=== PATIENT | male | born 1995 | race Two or more races ===

== ENCOUNTER 2017-07-27 06:11 | Inpatient (IN) | payer SELFPAY ==
[~2017-07-27] VITALS: Ht 175.3 cm; Wt 77.1 kg
[2017-07-27] MEDS ORDERED: ONDANSETRON HCL 4MG/2ML VIAL IV STA (06:50)
[2017-07-27] MEDS ORDERED: MORPHINE SULFATE 4 MG/ML CPJ (NOT FOR IM USE) IV STA (06:50)
[2017-07-27] MEDS ORDERED: SODIUM CHLORIDE 0.9% 1,000 ML IV ONE ×2 (06:50→12:18)
[2017-07-27 07:21] LABS: HEMATOCRIT. 44.2 % (42.0-52.0); MEAN CORPUSCULAR HEMOGLOBIN 27.7 pg (28.0-32.0); MEAN CORPUSCULAR VOLUME 81.8 fL (80.0-94.0); MEAN PLATELET VOLUME 8.6 fl (7.4-10.4); PLATELET 312 x1000/uL (130-400); RED CELL DISTRIBUTION WIDTH 12.6 % (11.6-14.6)
[2017-07-27 07:28] LABS: PROTHROMBIN TIME 10.6 sec (9.4-11.6)
[2017-07-27 07:36] LABS: CARBON DIOXIDE 27 mEq/L (21-32); CHLORIDE 101 mEq/L (98-107); PLATELET ESTIMATE NORMAL
[2017-07-27 08:59] LABS: CLARITY URINE CLEAR (CLEAR); COLOR URINE YELLOW (YELLOW); KETONES URINE NEGATIVE (NEGATIVE); LEUKOCYTE ESTERASE URINE NEGATIVE (NEGATIVE); NITRITE URINE NEGATIVE (NEGATIVE); OCCULT BLOOD URINE 2+ (NEGATIVE); PROTEIN URINE NEGATIVE (NEGATIVE); SPECIFIC GRAVITY URINE 1.019 (1.005-1.030); UROBILINOGEN URINE 0.2 E.U./dL (0.2-1.0)
[2017-07-27] MEDS ORDERED: MORPHINE SULFATE 4 MG/ML CPJ (NOT FOR IM USE) IV ONE (11:45)
[2017-07-27] MEDS ORDERED: IOHEXOL-300 100 ML BOTTLE ONE (12:18)
[2017-07-27] MEDS ORDERED: ACETAMINOPHEN 325MG TABLET PO NR (12:18)
[2017-07-27] MEDS ORDERED: LEVOFLOXACIN 750MG PREMIX 150 ML IV NR (12:30)
[2017-07-27] MEDS ORDERED: KETOROLAC 30MG/ML VIAL IV ONE (12:45)
[2017-07-27] MEDS ORDERED: SODIUM CHLORIDE 0.9% 1,000 ML IV NR (13:08)
[2017-07-27] MEDS ORDERED: SODIUM CHLORIDE 0.9% 1,000 ML IV SCH (14:00)
[2017-07-27 18:29] VITALS: BP 120/80
[2017-07-27] MEDS ORDERED: DIPHENHYDRAMINE 50MG/ML VIAL IV PRN (19:45)
[2017-07-27] MEDS ORDERED: PIPERACILLIN/TAZ 3.375G PREMIX 50 ML IV SCH (19:45)
[2017-07-27] MEDS ORDERED: ACETAMINOPHEN 325MG TABLET PO PRN (19:45)
[2017-07-27] MEDS ORDERED: ONDANSETRON HCL 4MG/2ML VIAL IV PRN (19:45)
[2017-07-27] MEDS ORDERED: MORPHINE SULFATE 2 MG/ML CPJ (NOT FOR IM USE) IV PRN (19:45)
[2017-07-27] MEDS ORDERED: MAGNESIUM/ALUMINUM HYDROXIDE/SIMETHICONE 30ML UDC PO PRN (19:45)
[2017-07-27 20:00] VITALS: BP 123/57
[2017-07-27] MEDS: PIPERACILLIN/TAZ 3.375G PREMIX 50 ML IV SCH (21:52)
[2017-07-27] MEDS: SODIUM CHLORIDE 0.9% 1,000 ML IV SCH (21:53)
[2017-07-28] VITALS: BP 123/76
[2017-07-28] MEDS: PIPERACILLIN/TAZ 3.375G PREMIX 50 ML IV SCH ×3 (00:10→12:06)
[2017-07-28 04:00] VITALS: BP 141/81
[2017-07-28] MEDS: SODIUM CHLORIDE 0.9% 1,000 ML IV SCH (05:02)
[2017-07-28 06:36] LABS: BASOPHILS % 0.4 % (0.0-2.0); EOSINOPHILS % 0.7 % (0.0-5.0); HEMOGLOBIN. 14.5 g/dL (14.0-18.0); LYMPHOCYTES % 17.2 % (20.0-50.0); MEAN CORPUSCULAR HEMOGLOBIN 28.4 pg (28.0-32.0); MEAN CORPUSCULAR VOLUME 82.6 fL (80.0-94.0); MEAN PLATELET VOLUME 8.7 fl (7.4-10.4); MONOCYTES % 12.6 % (2.0-8.0); NEUTROPHILS % 69.1 % (40.0-76.0); PLATELET 301 x1000/uL (130-400); RED BLOOD CELL COUNT 5.09 mill/uL (4.7-6.1); RED CELL DISTRIBUTION WIDTH 12.8 % (11.6-14.6)
[2017-07-28 07:10] LABS: CHLORIDE 100 mEq/L (98-107)
[2017-07-28 09:04] LABS: CARBON DIOXIDE 26 mEq/L (21-32)
[2017-07-28] MEDS ORDERED: TAMSULOSIN HCL 0.4MG SR CAPSULE PO SCH (10:45)
[2017-07-28 15:15] VITALS: BP 134/84
== END 2017-07-28 16:57 | disposition home or self-care (01) | DRG 254 ==
LOC: ER 06:11 → 6EST 11:10 → ENRESERV 15:55
PROVIDERS: ADMIT Internal Medicine; ATTEND Internal Medicine
DX: K35.80 Unspecified acute appendicitis (principal); R65.10 Systemic inflammatory response syndrome (SIRS) of non-infectious origin without acute organ dysfunction; N20.1 Calculus of ureter; Z72.89 Other problems related to lifestyle
CPT/HCPCS: 36415; 74176; 74177; 80048; 80053; 81001; 83605; 83690; 84443; 85025; 85610; 87040; 96361; 96365; 96366; 96375; 96376; 99285; J1885; J1956; J2270; J2405; J2543; J7030; Q9967